=== PATIENT | male | born 1985 | race Caucasian/White ===

== ENCOUNTER 2024-11-30 16:30 | Emergency (ER) | payer BC, SELFPAY ==
[2024-11-30 16:31] VITALS: BP 139/99; PULSE 85; RESP 18; TEMP 36.1; O2SAT 99; BMI 27.2
--- NOTE | 2024-11-30 17:08 | EDS_ITS ---
HPI <LADONNA Camara - Last Filed: 11/30/24 17:16> History of Present Illness Chief Complaint: Wound Check Narrative Narrative: Patient is a 39-year-old male with no significant medical history, states he is here because he got bit by 2 ticks. Patient knows there is a tick on his right lower abdomen just off midline, as well as another 1 to the right armpit area. Patient is he is able get the 1 out of his abdomen out and he now developed a rash. Patient is concerned because he had a red round rash around the tick bite in the abdomen. Patient did have some erythema around the foreign body to the right armpit. PFSH <LADONNA Camara - Last Filed: 11/30/24 17:16> [facility] Medical History no medical history Home Medications ?Medication ?Instructions ?Recorded ?Last Taken ?Type doxycycline hyclate 100 mg capsule 100 mg PO BID #14 c aps 11/30/24 Unknown Rx Allergy/AdvReac Type Severity Reaction Status Date / Time Latex, Natural Rubber Allergy Rash Verified 11/30/24 16:31 Social History Smoking Status: Smoker, status unknown ROS <LADONNA Camara - Last Filed: 11/30/24 17:16> ROS ED ROS Narrative Constitutional: Negative for fever, chills, weight loss, weakness Eyes: Negative for vision loss, vision change, double vision ENT: Negative for any sore throat, ear pain, congestion Cardiovascular: Negative for any chest pain, tightness, palpitations Respiratory: Negative for any cough, sputum production, hemoptysis, dyspnea, dyspnea on exertion, orthopnea Gastrointestinal: Negative for any abdominal pain, nausea, vomiting, diarrhea, constipation, blood in stool, blood in vomit : Negative for any urinary frequency, dysuria, retention, blood in urine Muscle skeletal: Negative for any neck pain, back pain Neurological: Negative for any headache, syncope, dizziness Skin: Negative for any rashes, itching, abrasions, lacerations. Positive for retained tick to the right upper chest right armpit, tick bite to the right side of the abdomen, redness around the area. Psychiatric: Negative for any depression, anxiety, stress, suicidal ideation, homicidal ideation Hematologic: Negative for any excessive bruising, easy bleeding EXAM <LADONNA Camara - Last Filed: 11/30/24 17:16> Physical Exam Narrative Exam Narrative: Vital signs reviewed. HEET: Head normocephalic atraumatic, TMs clear bilaterally. Posterior pharynx is clear, moist mucous membranes. Nares clear bilaterally. Neck: Supple with no lymphadenopathy or tenderness. No signs of meningismus. Cardiac: Regular rate and rhythm no murmurs gallops or rubs, equal peripheral pulses bilaterally. Respiratory: Lungs clear to auscultation bilaterally. No chest tenderness. Abdomen: Soft, nontender, nondistended. No abdominal bruit or pulsatile masses. No hepatosplenomegaly Extremities: No peripheral edema, no signs of gross trauma or deformity. Active full range of motion of all extremities. Neuro: Cranial nerves II through XII intact, no focal neurological deficits. Skin: Clean dry and intact with no rash, purpura, petechiae, vesicles or pustules. To the right upper chest, patient does have some retained tick head or body part in the right upper chest. The right lower abdomen has a clean area where the tick was attached there is some redness around the area which she is concerned. Backs/flank: No CVA tenderness, no midline spinal tenderness, no deformity. Psych: Normal mood and affect. No SI, HI or acute psychosis. Const Vital Signs: 11/30/24 16:31 Temperature 97 F L Temperature Source Temporal Pulse Rate 85 Respiratory Rate 18 Blood Pressure 139/99 H Blood Pressure Mean 112 Pulse Ox 99 Oxygen Delivery Method Room Air Positive well nourished and well developed General Appearance ED: well developed <Dr. Jason Roper MD - Last Filed: 11/30/24 17:46> Physical Exam Const Vital Signs: 11/30/24 16:31 Temperature 97 F L Temperature Source Temporal Pulse Rate 85 Respiratory Rate 18 Blood Pressure 139/99 H Blood Pressure Mean 112 Pulse Ox 99 Oxygen Delivery Method Room Air MDM <LADONNA Camara - Last Filed: 11/30/24 17:16> [facility] Treatment and Re-Evaluation :: Differential diagnosis includes however is not limited to: Tick bite, cellulitis, Lyme disease, Patient appears generally well, vital signs are stable, patient is nontoxic- appearing. Presenting to the emergency department for tick bites. To the retained tick in the right upper chest, was able to use a 25-gauge needle in tweezers and was able to get the retained products out. This was cleansed. Patient does have some erythema around the tick bite in the lower abdomen however there is no tick noted. This is not consistent with erythema migrans. Patient will receive a Lyme titer here. Patient was started on 1 week of doxycycline for the skin redness. Patient agreeable with the plan and is stable for discharge. <Dr. Jason Roper MD - Last Filed: 11/30/24 17:46> MDM MDM Narrative Medical decision making narrative: I have personally performed a face to face assessment of the patient and have reviewed the BRO Note. I performed a substantive portion of the visit including all aspects of the following. My sandoval findings include: History is remarkable for patient out in the [facility] on . He found 2 ticks. They were on for over 8 hours. What concerned him is there is a small red area near the tick bite right side of the abdomen. He was able to successfully move the entire tech. The other area there was retained piece of the mandible. This was removed. He has no other symptoms or complaints Exam is 2 tick bites with 1 remarkable for retained area and the other for slight erythema which may represent irritation or infection. Medical Decision Making plan is Lyme titer. He was placed on short course of antibiotics for the possible infected bite on his abdomen. Other additions or changes: [None] Discharge Plan Triage Chief Complaint: Wound Check ED Midlevel Provider: Reji Fisher ED Provider: Jason Roper Dx/Rx/DC Orders Clinical Impression: Tick bite, Cellulitis Instructions: Tick Bites, ED Cellulitis, ED Tick Facts Prescriptions: New doxycycline hyclate 100 mg capsule 100 mg PO BID Qty: 14 0RF Primary Care Provider: Care Physician,No Primary Referrals: Care Physician,No Primary [Primary Care Provider] - Activity Restrictions/Additional Instructions: Please follow-up outpatient. Take the doxycycline until finished Print Language: Setswana Disposition Disposition: Home, Self Care Discharge Date/Time: 11/30/24 17:28
[2024-11-30] MEDS: Doxycycline 100 MG CAPSULE PO (17:18)
[2024-12-03 15:08] LABS: Lyme Scn Total Ab w/Rflx Negative (Negative)
== END 2024-11-30 17:28 | disposition home or self-care (01) ==
PROVIDERS: Nurse Practitioner; Emergency Provider Emergency Medicine; Visit Provider Emergency Medicine
DX: L03.311 Cellulitis of abdominal wall (principal); T63.481A Toxic effect of venom of other arthropod, accidental (unintentional), initial encounter
CPT/HCPCS: 86618; 99282